=== PATIENT | female | born 1975 | race Caucasian/White ===

== ENCOUNTER → 2017-07-20 | Outpatient (CLI) | payer OTHER ==
[2017-07-20 17:58] LABS: HEMOGLOBIN 14.3 gm/dl (12.3-15.3); RED BLOOD COUNT 4.42 M/UL (4.00-5.10); WHITE BLOOD COUNT 9.7 K/UL (4.5-11.0)
[2017-07-20 18:23] LABS: BUN/CREATININE RATIO 16 (0-10)
== END ==
LOC: LAB 16:55
PROVIDERS: Nurse Practitioner
DX: R53.83 Other fatigue (principal)
CPT/HCPCS: 36415; 80053; 82550; 82553; 84484; 85027; 85379; 86140

== ENCOUNTER 2021-04-27 14:22 | Emergency (ER) | payer OTHER ==
[~2021-04-27 14:22] MED LIST: BACTRIM DS TAB1 EACH PO; FLEXERIL 10 MG10 MG PO; HYDROCODON-ACE1 EAC4 PO; LEVAQUIN750 MG PO; MELOXICAM15 MG PO; NAPROXEN500 MG PO; NEURONTIN300 MG PO; NORFLEX 100 MG100 MG PO; SYNTHROID200 MCG PO; TOPAMAX 100 MG100 MG PO; VENTOLIN HFA 66.7 GM INH
[2021-04-27 14:52] LABS: HEMOGLOBIN 13.8 gm/dl (12.3-15.3); RED BLOOD COUNT 4.12 M/UL (4.00-5.10); WHITE BLOOD COUNT 7.5 K/UL (4.5-11.0)
[2021-04-27 15:18] LABS: BUN/CREATININE RATIO 20 (0-10)
== END 2021-04-27 20:15 | disposition home or self-care (01) ==
LOC: ER1 14:22
PROVIDERS: Emergency Medicine; Physician Assistant
DX: R07.89 Other chest pain (principal); R51.9 Headache, unspecified; E03.9 Hypothyroidism, unspecified; F17.210 Nicotine dependence, cigarettes, uncomplicated; Z90.710 Acquired absence of both cervix and uterus; Z90.49 Acquired absence of other specified parts of digestive tract; Z79.899 Other long term (current) drug therapy
CPT/HCPCS: 70496; 70498; 71045; 80053; 80307; 81001; 82550; 82553; 83874; 84484; 85025; 85610; 85652; 85730; 86140; 93005; 96374; 96375; 99285; J1100; J1200; J1885; J2765; J7030; Q9967

== ENCOUNTER → 2022-03-25 | Outpatient (CLI) | payer OTHER ==
[~2022-03-25] MED LIST changes: +AUGMENTIN 875-1 EACH PO; +FLUOXETINE HCL40 MG PO; +GABAPENTIN400 MG PO; +LEVOTHYROXINE200 MC1 PO; +TIZANIDINE HCL4 MG PO
== END ==
LOC: KOH-I 11:04
DX: M96.1 Postlaminectomy syndrome, not elsewhere classified (principal); M51.36 Other intervertebral disc degeneration, lumbar region; M51.37 Other intervertebral disc degeneration, lumbosacral region
CPT/HCPCS: 72148